=== PATIENT | male | born 1995 | race Caucasian/White ===

== ENCOUNTER 2020-09-30 00:05 | Emergency (ER) | payer BC, MEDICAID ==
[~2020-09-30] VITALS: Ht 172.7 cm; Wt 85.3 kg
[2020-09-30 00:10] VITALS: BP 167/101
[2020-09-30 03:00] VITALS: BP 134/82
--- NOTE | 2020-09-30 03:00 | NUR ---
Patient discharged with v/s stable. Written and verbal after care instructions given and explained. Patient alert, oriented and verbalized understanding of instructions. Ambulatory with steady gait. All questions addressed prior to discharge. ID band removed. Patient advised to follow up with PMD. Rx of CIPROFLOXACIN HCL/DEXAMETHASONE given. Patient educated on indication of medication including possible reaction and side effects. Opportunity to ask questions provided and answered.
[2020-09-30] MEDS ORDERED: CIPR7.5D2 OT (03:02)
== END 2020-09-30 03:00 | disposition home or self-care (01) ==
LOC: MED 00:05
DX: H60.91 Unspecified otitis externa, right ear (principal); R11.0 Nausea
CPT/HCPCS: 99283